=== PATIENT | born 1970 | race African-American/Black ===

== ENCOUNTER 2023-11-23 16:36 | Emergency (ER) | payer MEDICAID ==
[~2023-11-23] VITALS: Ht 193 cm; Wt 110.0 kg
[2023-11-23 16:58] VITALS: BP 113/70; TEMP 98.2; O2SAT 99
[2023-11-23 17:09] VITALS: PULSE 100; RESP 20
[2023-11-23 19:58] LABS: BASOPHILS % 0.9 % (0.0-2.0); EOSINOPHILS % 2.3 % (0.0-5.0); HEMATOCRIT. 38.5 %; HEMOGLOBIN. 12.8 g/dL; LYMPHOCYTES % 27.7 %; MEAN CORPUSCULAR HEMOGLOBIN 32.3 pg; MEAN CORPUSCULAR HGB CONC 33.3 g/dL; MEAN CORPUSCULAR VOLUME 97.1 fL; MEAN PLATELET VOLUME 7.8 fl (7.4-10.4); MONOCYTES % 10.6 % (2.0-8.0); NEUTROPHILS % 58.5 %; PLATELET 267 x1000/uL (130-400); RED BLOOD CELL COUNT 3.96 mill/uL; RED CELL DISTRIBUTION WIDTH 13.7 % (11.6-14.6); WHITE BLOOD COUNT 5.5 x1000/uL
[2023-11-23 20:12] LABS: ALANINE AMINOTRANSFERASE 23 IU/L (10-49); ALBUMIN 4.8 g/dL (3.2-4.8); ASPARTATE AMINOTRANSFERASE 33 IU/L (<34); BILIRUBIN TOTAL 0.4 mg/dL; CALCIUM 9.7 mg/dL (8.7-10.4); CARBON DIOXIDE 24 mEq/L (21-32); CHLORIDE 105 mEq/L (98-107); CREATININE 1.2 mg/dL (0.6-1.0); GLUCOSE 87 mg/dL; POTASSIUM 4.4 mEq/L; PROTEIN TOTAL 8.5 g/dL; SODIUM 136 mEq/L; UREA NITROGEN BLOOD 18 mg/dL (9-23)
[2023-11-23 20:21] LABS: TROPONIN I HIGH SENSITIVITY < 4 ng/L (3.0-34)
[2023-11-23] MEDS ORDERED: PERM60CR4 TP (21:53)
== END 2023-11-23 22:20 | disposition home or self-care (01) ==
LOC: ER 16:36
DX: F22 Delusional disorders (principal); B86 Scabies
CPT/HCPCS: 36415; 71045; 73610; 80053; 84484; 85025; 99284